=== PATIENT | female | born 1990 | race Caucasian/White ===

== ENCOUNTER 2023-02-26 15:33 | Inpatient (IN) | payer BC ==
[~2023-02-26] VITALS: Ht 160 cm; Wt 81.6 kg
[~2023-02-26 15:33] MED LIST: ELET20TA PO; IMII6 SQ; ZOLM5SPR6 NS
[2023-02-26 15:43] VITALS: BP_SYST 122; PULSE 123; RESP 18; TEMP 98.3; O2SAT 98
[2023-02-26] MEDS ORDERED: MORPHINE 4 MG INJ. 4 MG/ML VIAL IM ONE (15:45)
[2023-02-26] MEDS ORDERED: ONDANSETRON 4 MG ODT TAB PO ONE (15:45)
[2023-02-26] MEDS ORDERED: NACL 0.9% 1,000 ML IV ONE (16:00)
[2023-02-26] MEDS ORDERED: MORPHINE 4 MG INJ. 4 MG/ML VIAL IVP ONE (16:00)
[2023-02-26] MEDS ORDERED: ONDANSETRON HCL 4 MG/2 ML VIAL IVP ONE (16:00)
[2023-02-26 16:26] LABS: BASOPHILS % (AUTO) 0.4 % (0.0-2.0); EOSINOPHILS # (AUTO) 0.1 K/uL (0.0-0.4); EOSINOPHILS % (AUTO) 0.5 % (0.0-4.0); HEMATOCRIT 32.6 % (36-48); HEMOGLOBIN 10.9 g/dL (12.0-16.0); LYMPHOCYTES % (AUTO) 15.7 % (20.5-51.5); MEAN CORPUSCULAR HEMOGLOBIN 28 pg (27-31); MEAN CORPUSCULAR HGB CONC 33 % (32-36); MEAN CORPUSCULAR VOLUME 84 fL (79.0-98.0); MONOCYTES # (AUTO) 0.5 K/uL (0.0-1.0); MONOCYTES % (AUTO) 3.9 % (1.7-9.3); NEUTROPHILS % (AUTO) 79.5 % (40.0-70.0); PLATELET COUNT (AUTO) 325 K/uL (130-430); RED BLOOD CELL COUNT(AUTO) 3.87 MIL/uL (4.2-6.2); RED CELL DISTRIBUTION WIDTH 13.5 % (9.0-15.0); WHITE BLOOD COUNT (AUTO) 12.6 K/uL (4.8-10.8)
[2023-02-26] MEDS ORDERED: OXYTOCIN/0.9 % SODIUM CHLORIDE 1,000 ML IV SCH (17:45)
[2023-02-26 17:46] LABS: BILIRUBIN,URINE 1+ (NEGATIVE); BLOOD, URINE 3+ (NEGATIVE); CLARITY/URINE TURBID (CLEAR); COLOR,URINE RED (YELLOW); GLUCOSE,URINE NEGATIVE (NEGATIVE); KETONES,URINE TRACE (NEGATIVE); LEUKOCYTE ESTERASE ,URINE NEGATIVE (NEGATIVE); NITRITE, URINE NEGATIVE (NEGATIVE); PROTEIN URINE 2+ (NEGATIVE); UROBILINOGEN,URINE 0.2 (0.2-1.0)
[2023-02-26] MEDS ORDERED: D5/0.45 NS 1,000 ML IV SCH (18:00)
[2023-02-26 18:11] LABS: BACTERIA,URINE FEW /HPF (None Seen); MUCUS,URINE 1+ /LPF (None Seen); RBC,URINE >100 /HPF (0-3)
[2023-02-26 18:12] LABS: INR 1.1 (0.8-1.2); PROTHROMBIN TIME 11.2 SECS (9.5-12.5)
[2023-02-26 22:50] VITALS: O2SAT 98
[2023-02-26] MEDS ORDERED: fentaNYL CITRATE/PF 100 MCG/2 ML AMP ONE (23:04)
[2023-02-26] MEDS ORDERED: MIDAZOLAM HCL 2 MG/2 ML VIAL (VERSED) ONE (23:04)
[2023-02-26] MEDS ORDERED: ACETAMINOPHEN I.V. 1000 MG 100 ML IV ONE (23:05)
[2023-02-26] MEDS ORDERED: PROPOFOL 200MG/ 20ML VIAL (DIPRIVAN) IV ONE (23:06)
[2023-02-26] MEDS ORDERED: LR 1,000 ML IV.SOLN IV ONE (23:06)
[2023-02-26] MEDS ORDERED: CEFAZOLIN 2 GM IVPB PREMIX 50 ML IV ONE (23:06)
[2023-02-26] MEDS ORDERED: NS IRRIG SOLN 1000 ML IR ONE (23:06)
[2023-02-26] MEDS ORDERED: OXYTOCIN 10 UNIT/ML VIAL ONE (23:06)
[2023-02-26] MEDS ORDERED: WATER FOR IRRIGATION,STERILE 1,000 ML IRRIG.SOLN IR ONE (23:06)
[2023-02-26] MEDS ORDERED: LR 1,000 ML IV ONE (23:30)
[2023-02-26] MEDS ORDERED: ONDANSETRON HCL 4 MG/2 ML VIAL IVP PRN (23:30)
[2023-02-26] MEDS ORDERED: fentaNYL CITRATE/PF 100 MCG/2 ML AMP IVP PRN ×3 (23:30)
[2023-02-27] MEDS ORDERED: HYDROcodone/ACETAMIN 5-325 MG TAB (NORCO/ VICODIN) PO PRN
[2023-02-27] MEDS ORDERED: ONDANSETRON HCL 4 MG/2 ML VIAL IVP PRN
[2023-02-27] MEDS ORDERED: NALOXONE HCL 0.4 MG/ML AMP (NARCAN) IVP PRN
[2023-02-27] MEDS ORDERED: OXYCODONE/ACETAMINOPHEN 5-325 TABLET PO PRN ×2
[2023-02-27 01:50] VITALS: BP_SYST 120; PULSE 85; RESP 19; TEMP 98.5
== END 2023-02-27 01:30 | disposition home or self-care (01) | DRG 770 ==
LOC: SED 15:33 → SMU 17:39
PROVIDERS: ADMIT Specialist; ATTEND Specialist
PROC: 10D17ZZ Extraction of Products of Conception, Retained, Via Natural or Artificial Opening (ICD-10-PCS; principal; 2023-02-26 23:06)
DX: O03.1 Delayed or excessive hemorrhage following incomplete spontaneous abortion (principal); Z88.6 Allergy status to analgesic agent
CPT/HCPCS: 36415; 76817; 81000; 81001; 81015; 84702; 85025; 85610-TC; 86886; 86900; 86901; 88305; 96361; 96374; 96375; 99285; J0131; J0690; J2270; J2405; J2590; J2704; J3010; J3465; J7120